=== PATIENT | female | born 1990 | race Caucasian/White ===

== ENCOUNTER 2022-06-07 08:43 | Emergency (ER) | payer MEDICARE, MEDICAID, SELFPAY ==
[2022-06-07 08:46] VITALS: BP 173/104; PULSE 89; RESP 19; TEMP 36.1; O2SAT 98; BMI 51.3
--- NOTE | 2022-06-07 13:00 | ED_ITS ---
HPI - General Adult General Chief complaint: General Medical Stated complaint: possible covid, double ear infection Time Seen by Provider: 06/07/22 09:35 Source: patient Mode of arrival: ambulatory Limitations: no limitations History of Present Illness MD complaint: ear pain, + COVID at home Onset (ago): day(s) (5) Location: head (bilateral ears) Radiation: non-radiation Severity: mild Quality: aching and constant Pain Consistency: intermittent Relieving factors: none Exacerbating factors: other (touching ears, swallowing) Associated symptoms: loss of appetite, malaise and other (myalgias) Treatments prior to arrival: none Related Data Previous Rx's Medication Instructions Recorded cefuroxime axetil 500 mg tablet 500 mg PO BID 7 days #14 tabs 06/07/22 prednisone 20 mg tablet 40 mg PO DAILY 5 days #10 tabs 06/07/22 Allergies Allergy/AdvReac Type Severity Reaction Status Date / Time No Known Allergies Allergy Unverified 07/10/20 16:00 [No Known Allergies*] Review of Systems Review of Systems: Constitutional : No Fever, No Chills, pos Fatigue, No Malaise ENT/Mouth : No sore throat, No Rhinorrhea, pos ear pain Eyes: No Eye Pain, No Swelling, No Redness Cardiovascular : No Chest Pain, No SOB Respiratory : No Cough, No Sputum Gastrointestinal : No Nausea, No Vomiting, No Diarrhea Genitourinary : No Dysuria, No Urinary Frequency, No Hematuria, Musculoskeletal : No joint pain, No Myalgias, No Joint Swelling Skin : No Skin Lesions, No rash Neuro : No Weakness, No Numbness, No Dizziness, No Headache PMFSH Past Medical History Attestation statement: The following information was validated with the patient. Medical History Crohn disease Social History Social History (Updated 06/07/22 @ 13:07 by Desiree Brown DO) Patient Tobacco Use Status: Never used Tobacco Advance Directives: Yes Advance Directives Information Provided: Yes Advance Directives on File: No Physical Exam ED Vital Signs: Vital Signs - 24 hr 06/07/22 08:46 Temperature 97 F Pulse Rate 89 Respiratory Rate 19 Blood Pressure 173/104 H Pulse Oximetry 98 Oxygen Delivery Method Room Air BMI result Body Mass Index 51.3 Appearance: Alert. Oriented X3. No acute distress. Eyes: Pupils equal, round and reactive to light. ENT: Pharynx normal. Bilateral TMs bulging with erythema loss of landmarks erythema and effusion noted, yellow fluid noted, no perforation Neck: Normal inspection. Neck supple. CVS: Normal heart rate and rhythm. Pulses normal. Respiratory: No respiratory distress. Breath sounds normal. Abdomen: Soft and non-tender. Skin: Skin warm and dry. Normal skin color. Extremities: No lower extremity edema. Neuro: Oriented X 3. No motor deficit. No sensory deficit. Medical Decision Making MDM Narrative Medical decision making narrative: 32 yo female with hx of Crohn's on mercaptopurine who comes in with c/o COVID illness and bilateral ear pain - symptoms started with home + test for COVID on Tuesday. The patient is day 5 of symptoms declines paxlovid and other treatments at this time she is more focused on her ears - just had amoxicillin will start on prednisone and ceftin for bilateral AOM. NO hypoxia no SOB, no resp issues Discharge Plan Discharge Clinical Impression: COVID-19 Acute otitis media Qualifiers: Otitis media type: suppurative Laterality: bilateral Recurrence: recurrent Spontaneous tympanic membrane rupture: without spontaneous rupture Qualified Code(s): H66.006 - Acute suppurative otitis media without spontaneous rupture of ear drum, recurrent, bilateral Patient Disposition: Home, Self-Care Instructions: Ear Infection (ED), COVID-19 (Coronavirus Disease 2019) (ED) Additional Instructions: return to ED for any worsening symptoms or concerns if you become so short of breath you cannot walk to your bathroom please seek c are Prescriptions: New prednisone 20 mg tablet 40 mg PO DAILY 5 Days Qty: 10 0RF cefuroxime axetil 500 mg tablet 500 mg PO BID 7 Days Qty: 14 0RF Stand Alone Forms: Work/School Release
[2022-06-07 13:53] LABS: COVID-19 Test Positive (Negative); IDNOW Serial# 9DB6401D
== END 2022-06-07 14:04 | disposition home or self-care (01) ==
PROVIDERS: Emergency Provider Emergency Medicine
DX: U07.1 COVID-19 (principal); H66.006 Acute suppurative otitis media without spontaneous rupture of ear drum, recurrent, bilateral
CPT/HCPCS: 87635; 99282; 99283; 99284

== ENCOUNTER 2023-03-20 07:14 | Emergency (ER) | payer MEDICARE, MEDICAID, SELFPAY ==
[2023-03-20 08:08] VITALS: BP 124/94; PULSE 112; RESP 17; TEMP 35.9; O2SAT 98; BMI 52.0
[2023-03-20 08:39] LABS: COVID-19 Test Negative (Negative); IDNOW Serial# 08D9AD1C; IDNOW Serial# BCCEAD1C; Influenza A Negative (Negative); Influenza B2 Negative (Negative)
[2023-03-20] MEDS: Ibuprofen 600 MG TABLET PO (10:01)
--- NOTE | 2023-03-20 10:01 | ED_ITS ---
HPI - General Adult General Chief complaint: Upper Respiratory Symptoms Stated complaint: strep throat? Time Seen by Provider: 03/20/23 08:16 Source: patient and RN notes reviewed Mode of arrival: ambulatory Limitations: no limitations History of Present Illness HPI narrative: This is a 32-year-old female, with a past medical history of hypertension and Crohn's disease, who presents emergency department with complaints of ongoing sore throat for the last week and a half. Patient reports that last week she was diagnosed with bilateral conjunctivitis and was treated with antibiotic ointment and eyedrops. Patient reports that her eyes are feeling much better however has had a consistently sore throat. Patient reports that the pain has not worsened or gotten better. She has a history of seasonal allergies and has just been taking Flonase and Claritin, which she just started this past . Patient denies any fevers, chills, palpitations, shortness of breath, chest pain. Denies any profound weight gain in the last 2-3 months, reports some fatigue over the last several months. No hair loss, has recently been checked for thyroid disorders which have been normal. No other complaints or concerns at this time. MD complaint: Sore throat Onset (ago): week(s) Radiation: non-radiation Severity: moderate Pain Consistency: intermittent Relieving factors: none Exacerbating factors: none Associated symptoms: denies other symptoms Treatments prior to arrival: none Related Data Previous Rx's Medication Instructions Recorded cefuroxime axetil 500 mg tablet 500 mg PO BID 7 days #14 tabs 06/07/22 prednisone 20 mg tablet 40 mg PO DAILY 5 days #10 tabs 06/07/22 ibuprofen 600 mg tablet 600 mg PO Q6H PRN pain #30 tabs 03/20/23 Allergies Allergy/AdvReac Type Severity Reaction Status Date / Time No Known Allergies Allergy Unverified 07/10/20 16:00 [No Known Allergies*] Review of Systems Review of Systems: Constitutional: No Weight loss, No Fever, No Chills ENT/Mouth: No Ear Pain, No Nasal Congestion, No Sinus Pain, No Hoarseness, + sore throat, No Rhinorrhea, No Swallowing Difficulty Cardiovascular: No Chest Pain, No SOB Respiratory: No Cough, No Sputum, No Wheezing Gastrointestinal: No Nausea, No Vomiting, No Diarrhea, No Constipation, No Abdominal pain Genitourinary: No Dysuria, No Urinary Frequency, No Hematuria, No Urinary Incontinence/retention, No Urgency, No Flank Pain Musculoskeletal: No joint pain, No Myalgias, No Joint Swelling Skin: No Skin Lesions, No rash Neuro: No Weakness, No Numbness, No Paresthesias [facility] Past Medical History Medical History Crohn disease Social History Social History Patient Tobacco Use Status: Never used Tobacco Advance Directives: Yes Advance Directives Information Provided: Yes Advance Directives on File: No Physical Exam ED Vital Signs: Vital Signs - 24 hr 03/20/23 08:08 Temperature 96.6 F L Pulse Rate 112 H Respiratory Rate 17 Blood Pressure 124/94 H Pulse Oximetry 98 Oxygen Delivery Method Room Air BMI result Body Mass Index 52.0 General: Awake, alert, and oriented X3. No acute distress. Anxious appearing HEENT: Normal inspection. Oropharynx is non erythematous, nonedematous, no tonsillar hypertrophy or exudates. Uvula is midline. No frontal maxillary or ethmoid sinus tenderness to palpation. TMs are nonerythematous nonbulging. No trismus, drooling, or dysphonia. Tolerating secretions well without difficulty. Speaking in full sentences. CVS: Mildly tachycardic, normal rhythm. Pulses normal. Respiratory: No respiratory distress, lungs clear to auscultation bilaterally, no wheezes, rhonchi or rales. Skin: Warm, dry, no rashes noted to exposed skin. Normal skin color. Normal skin turgor. Extremities: Normal inspection Neuro: Oriented X 3. No motor deficit. No sensory deficit. Course Reevaluation(s) Reevaluation #1: Patient was swabbed and triage however there was an error with the strep test was not performed. Patient was became very upset with this situation. I recommended that I was going to re-swab her and can call her with the test results. I discussed with patient that patient's symptoms are most likely viral in nature, or could be attributed to seasonal allergies, given normal exam findings. Given ibuprofen in the department and will discharge patient on ibuprofen as well, given sore throat care instructions, advised to follow-up with primary care physician if her symptoms do not resolve in the next few days. Patient understands and agrees with this plan. Time: 10:11 Reevaluation #2: Viral swabs returned and patient is negative for COVID, flu, and strep. I called patient and informed of test results. She has no questions or concerns at this time. Time: 12:14 Medications Administered Discontinued Medications Generic Name Dose Route Start Last Admin Trade Name Jay PRN Reason Stop Dose Admin Ibuprofen 600 mg 03/20/23 09:52 03/20/23 10:01 Ibuprofen 600 Mg Tablet PO 03/20/23 09:53 600 mg ONCE ONE Administration Medical Decision Making Medical Decision Making MDM Narrative: 32-year-old female presenting to the emergency department for evaluation of ongoing sore throat for the last 1 and half weeks. Patient had bilateral conjunctivitis recently and was treated successfully with appointment in eyedrops prescribed by her primary care physician. She has had this persistent ongoing sore throat for the last week and a half. On examination, patient is mildly tachycardic but appears anxious appearing, afebrile, all other vital signs are within normal limits. Patient is nontoxic appearing. Oropharynx is non erythematous not edematous. Plan: Viral swabs, strep test, Motrin 600 mg by mouth Differential Diagnosis Differential Diagnoses: The differential diagnosis associated with the presentation includes Strep pharyngitis, sinusitis, tonsillitis, peritonsillar abscess URI, allergic rhinitis, sinusitis Lab Data Labs: Lab Results 03/20/23 03/20/23 03/20/23 Range/Units 08:17 08:17 09:51 COVID-19 (DONI) Negative (Negative) COVID-19 Clin Com See Note Influenza Type A (ANNA) Negative Negative (Negative) Influenza Type B (ANNA) Negative Negative (Negative) Influenza A & B Note See Note See Note S. pyogenes GrpA ANNA (Negative) 03/20/23 03/20/23 Range/Units 09:51 09:51 COVID-19 (DONI) Negative (Negative) COVID-19 Clin Com See Note Influenza Type A (ANNA) (Negative) Influenza Type B (ANNA) (Negative) Influenza A & B Note S. pyogenes GrpA ANNA Negative (Negative) Discharge Plan Discharge Clinical Impression: Acute sore throat Patient Disposition: Home, Self-Care Instructions: Pharyngitis (ED) Additional Instructions: I will call you later today with your flu, COVID, and strep test results. Please continue taking ibuprofen as directed as needed for your pain. Continue performing salt water gargles, and drink tea with honey. Continue taking claritin and flonase prescribed Use cough drops as this can provide you with relief as well. Drink plenty of fluids and get plenty of rest. If any new or worsening symptoms occur please return for re-evaluation. If your symptoms do not improve by next week please follow-up with your primary care physician Prescriptions: New ibuprofen 600 mg tablet 600 mg PO Q6H PRN (Reason: pain) Qty: 30 0RF No Action prednisone 20 mg tablet 40 mg PO DAILY 5 Days Qty: 10 0RF cefuroxime axetil 500 mg tablet 500 mg PO BID 7 Days Qty: 14 0RF Interventions: ED Discharge Assessment Last Done: 03/20/23 10:05 Discharge Date/Time: 03/20/23 10:06
[2023-03-20 10:11] LABS: IDNOW Serial# 9DB6401D; Influenza A Negative (Negative); Influenza B2 Negative (Negative)
[2023-03-20 10:12] LABS: COVID-19 Test Negative (Negative); IDNOW Serial# 08D9AD1C; IDNOW Serial# BCCEAD1C; Strep A Nucleic Acid Negative (Negative)
== END 2023-03-20 10:06 | disposition home or self-care (01) ==
PROVIDERS: Physician Assistant; Emergency Provider Internal Medicine; PCP Family Medicine
DX: J02.9 Acute pharyngitis, unspecified (principal); Z20.822 Contact with and (suspected) exposure to COVID-19; Z20.828 Contact with and (suspected) exposure to other viral communicable diseases; Z79.899 Other long term (current) drug therapy
CPT/HCPCS: 87502; 87635; 87651; 99283